=== PATIENT | male | born 1960 | race African-American/Black ===

== ENCOUNTER 2024-08-30 08:15 | Day surgery (SDC) | payer OTHER ==
[~2024-08-30] VITALS: Ht 172.7 cm; Wt 130.9 kg
[~2024-08-30 08:15] MED LIST: IBLOOD GLUCOSE TEST STRIP 1 EA TEST VI PRN; LACTATED RINGER'S 1,000 ML IV SCH; LIDOCAINE HCL 1% 5 ML SDV INJ ONE; MIDAZOLAM HCL 5 MG/5 ML VIAL IV PRN; NORVASC10 MG PO; TRIBENZOR 40-51 EAC1 PO; fentaNYL citrate 100 MCG/2 ML VIAL IV PRN
[2024-08-30 08:28] VITALS: BP 137/88
[2024-08-30] MEDS ORDERED: fentaNYL citrate 100 MCG/2 ML VIAL ONE (08:31)
[2024-08-30] MEDS ORDERED: MIDAZOLAM HCL 5 MG/5 ML VIAL ONE (08:31)
--- NOTE | 2024-08-30 09:24 | NUR ---
08/30/24 0924 Dariela Vasques PATIENT'S OXYGEN SATURATION DECREASES RAPIDLY TO 83% ON RA UPON ARRIVAL TO PACU. OXYGEN IS INCREASED TO 2L VIA NC.
[2024-08-30 09:46] VITALS: BP 141/97
--- NOTE | 2024-08-31 07:23 | OR ---
[facility] [address], [place] [address] Signed DATE OF OPERATION: 08/30/2024 SURGEON: Leno Goodson MD PREOPERATIVE DIAGNOSES: 1. Personal history of colonic polyps in his 50s. 2. Brother of anal cancer in his 50s. 3. Father may have from colon cancer. POSTOPERATIVE DIAGNOSES: 1. Minimal sigmoid diverticulosis. 2. Minimal internal hemorrhoids. PROCEDURE: Colonoscopy without biopsy. ESTIMATED BLOOD LOSS: None. INDICATIONS: Rodolfo is a 64-year-old gentleman, asked to see me for a followup colonoscopy. He said he is originally from [place]. He had moved up to [place]. While in [place] in his early 50s and then again at age 59, he underwent colonoscopy. Therefore, his last colonoscopy was in 2019. He is pretty certain they took out polyps from both colonoscopies. He said he has no lower GI complaints currently. He thinks his father may have of colon cancer. He is not sure, but he forgot to check with his family. Unfortunately, his brother did of anal cancer in his 50s. It was stage IV when it was diagnosed. He did receive chemo and radiation therapy, but no surgery. Rodolfo has moved over to [place], [place] for his employment. His is with him here in town. 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 In the office, I gave Rodolfo a brochure on colonoscopy. We had reviewed the nature of the test. There is risk including, but not limited to gas bloating, crampy abdominal pain, bleeding, perforation requiring surgery, and missed diagnosis. We also reviewed the written instructions for the bowel prep line by line. He better than one gallon jug. We also reviewed the need for IV conscious sedation. He understands an adult person has to take him home afterwards. He had expressed understanding and wished to proceed. PROCEDURE IN DETAIL: Rodolfo was taken into our endoscopy suite and placed in the left lateral decubitus position. Rodolfo is a very large man with a body mass index of 40. He has a very round Electronically Signed By: LENO GOODSON MD 08/31/24 0723 PATIENT NAME: RODOLFO OSWALD OPERATIVE REPORT DATE OF : 62 REPORT #: [id number] PHYSICIAN: LENO GOODSON MD PCP: JUAN CISSE MD REPORT IS CONFIDENTIAL AND NOT TO BE RELEASED WITHOUT AUTHORIZATION [facility] [address], [place] [address] Signed full heavy face. He has a very heavy chest and abdomen as well. We have given him 5 mg of Versed and 125 mcg of fentanyl divided throughout the case. He was either awake, talking and moaning or he was asleep and obstructed. He most likely has some level of sleep apnea. I think for his safety in the future, he would be much better served with monitored anesthesia care and propofol infusion. We did a digital rectal exam. He had good sphincter tone. No external hemorrhoids. There were no masses noted. Again, he is a large man and I could not reach his prostate gland. The adult colonoscope was introduced and advanced under direct visualization of the camera. His prep was quite clean. We could easily see the cecum and the ileocecal valve. The scope was then slowly withdrawn. We took pictures throughout for photodocumentation. He does have some diverticula in the sigmoid colon. They are small and quite shallow, few in number and scattered about. Once in the rectum, the scope was retroflexed. He had just very minimal internal hemorrhoid tissue. After this, the gas was suctioned out and the colonoscope removed. Overall, Rodolfo tolerated the procedure well. RECOMMENDATIONS: Rodolfo should return in 5 years for repeat colonoscopies due to his family history. He will probably be better served in the future, particularly as he is getting older with monitored anesthesia care and propofol infusion. Leno Goodson MD ALB/MODL /[id number] cc: MD Juan Kaiser MD Copies: LENO GOODSON MD, RUSSELL BARR MD ~ Electronically Signed By: LENO GOODSON MD 08/31/24 0723 PATIENT NAME: RODOLFO OSWALD OPERATIVE REPORT DATE OF : 62 REPORT #: [id number] PHYSICIAN: LENO GOODSON MD PCP: JUAN CISSE MD REPORT IS CONFIDENTIAL AND NOT TO BE RELEASED WITHOUT AUTHORIZATION
== END 2024-08-30 09:52 | disposition home or self-care (01) ==
LOC: DS 08:15 → DSVR 08:16 → DS 09:30 → EDSEX 10:15
PROVIDERS: ATTEND Colon & Rectal Surgery
PROC: 0DJD8ZZ Inspection of Lower Intestinal Tract, Via Natural or Artificial Opening Endoscopic (ICD-10-PCS; principal; 2024-08-30 09:30)
DX: K64.8 Other hemorrhoids (principal); K57.30 Diverticulosis of large intestine without perforation or abscess without bleeding; I10 Essential (primary) hypertension; E66.9 Obesity, unspecified; Z68.41 Body mass index [BMI] 40.0-44.9, adult; Z79.899 Other long term (current) drug therapy; Z80.0 Family history of malignant neoplasm of digestive organs; Z86.0100 Personal history of colon polyps, unspecified
CPT/HCPCS: 99153; G0500; J2250; J3010; J7121